=== PATIENT | female | born 1990 | race Caucasian/White ===

== ENCOUNTER → 2017-11-10 14:01 | Outpatient (CLI) | payer OTHER, MEDICAID, SELFPAY ==
--- NOTE | 2017-11-10 | DI.ECHO.S_ITS ---
[facility] +---------+ : : [address] [address] : : : : [id number] : : : : Phone: [phone]+ Echocardiogram Report + + :Name: CAROLINE ALBA Study Date: 11/10/2017 Height: 63 in : :[facility] Exam Location: [facility] Weight: 159 lb : : Gender: Female BSA: 1.8 m2 : :: 1990 Age: 27 yrs BP: 112/68 mmHg: :Reason For Study: MITRAL REGURGITATION, SYSTOLIC MURMUR : :Ordering Physician: : :Diamond Zheng Performed By: Sultana Lemus : :Referring: DIAMOND ZHENG : + + Interpretation Summary The left ventricle is normal in size, wall thickness, and systolic function without any focal wall motion abnormalities. The ejection fraction is estimated to be 55-60%. The right ventricle is normal in size and function. The right ventricular systolic pressure is estimated at 24 mmHg assuming a right atrial pressure of 8 mm Hg. The left atrial size is normal. Right atrial size is normal. There is no significant valvular heart disease. The aortic root is normal size. Procedure: A two-dimensional transthoracic echocardiogram with color flow and Doppler was performed. The study quality was technically adequate. There is no prior echocardiogram noted for this patient. The patient was in normal sinus rhythm during the exam. Left Ventricle: The left ventricle is normal in size, wall thickness, and systolic function without any focal wall motion abnormalities. The ejection fraction is estimated to be 55-60%. Assessment of diastolic parameters indicates normal left ventricular diastolic function and normal filling pressures. Right Ventricle: The right ventricle is normal in size and function. Atria: The left atrial size is normal. Right atrial size is normal. There is no Doppler evidence for an interatrial shunt. Mitral Valve: The mitral valve is normal. There is trace mitral regurgitation. Aortic Valve: The aortic valve is normal in structure and function. No aortic regurgitation is present. Tricuspid Valve: The tricuspid valve is normal. There is trace tricuspid regurgitation. The right ventricular systolic pressure is estimated at 24 mmHg assuming a right atrial pressure of 8 mm Hg. Pulmonic Valve: The pulmonic valve leaflets are thin and pliable; valve motion is normal. There is trace pulmonic regurgitation. There is no significant valvular heart disease. Great Vessels: The aortic root is normal size. The ascending aorta is normal in size. The aortic arch is normal in size. The pulmonary is not well visualized. The IVC is dilated (diameter is greater than 2.1 cm) yet it collapses greater than 50% with a sniff. This suggests a right atrial pressure of 8 mm Hg. Pericardium/ Pleura There is no pericardial effusion. There is no pleural effusion. MMode/2D Measurements & Calculations LVIDd: 4.7 cm LVOT diam: 2.0 cm LVIDs: 3.4 cm Ao root diam: 2.8 cm FS: 27.2 % asc Aorta Diam: 2.6 cm EPSS: 0.68 cm Ao Arch Diam (Prox Trans): 2.3 cm IVSd: 0.68 cm LVPWd: 0.55 cm LV haynes. diameter/BSA (cm/m^2): 2.7 LV sys. diameter/BSA (cm/m^2): 2.0 LA A2 area: 18.2 cm2 RA long axis: 5.2 cm LA A4 area: 18.1 cm2 RA area: 16.4 cm2 LA length (vol): 5.3 cm RA vol: 44.2 ml LA vol: 52.5 ml RA : 25.2 ml/m2 LA vol index: 30.0 ml/m2 IVC diam: 2.2 cm RVD1 (basal): 2.9 cm RVD2 (mid): 2.3 cm TAPSE: 3.3 cm Doppler Measurements & Calculations Ao V2 max: 142.4 cm/sec LVOT Max Kentrell: 106.5 cm/sec Ao V2 mean: 92.8 cm/sec LV V1 max P.5 mmHg Ao max P.1 mmHg LV V1 VTI: 18.6 cm Ao mean P.9 mmHg CAMRON(I,D): 2.2 cm2 Ao V2 VTI: 27.8 cm CAMRON(V,D): 2.5 cm2 sev ratio: 0.67 CAMRON indexed to BSA (cm^2/m^2): 1.2 MV E max kentrell: 87.5 cm/sec TR max kentrell: 200.3 cm/sec MV A max kentrell: 47.4 cm/sec TR max P.0 mmHg MV E/A: 1.8 PA V2 max: 82.0 cm/sec Med Peak E' Kentrell: 8.1 cm/sec PA V2 mean: 55.4 cm/sec E/E' med: 10.8 PA mean P.4 mmHg Lat Peak E' Kentrell: 17.5 cm/sec PA pr(Accel): 56.5 mmHg E/E' lat: 5.0 E/e' average: 7.9 MV dec time: 0.25 sec MV P1/2t: 74.5 msec MV P1/2t max kentrell: 87.0 cm/sec MVA(P1/2t): 3.0 cm2 Reading Physician:PM
== END ==
PROVIDERS: Family Provider Family Medicine; Visit Provider Family Medicine
DX: I34.0 Nonrheumatic mitral (valve) insufficiency (principal); R01.1 Cardiac murmur, unspecified
CPT/HCPCS: 93306

== ENCOUNTER 2022-01-28 12:52 | Emergency (ER) | payer OTHER, SELFPAY ==
[2022-01-28 13:07] VITALS: BP 137/81; PULSE 99; RESP 20; TEMP 36.8; O2SAT 98; BMI 31.4
[2022-01-28 14:13] LABS: Influenza A - CEPHEID Flu A POSITIVE (NEGATIVE); Influenza B - CEPHEID Flu B NEGATIVE (NEGATIVE); Respiratory Syncytial Virus Negative (Negative)
[2022-01-28 14:14] LABS: COVID-19 CEPHEID 4-PLEX PCR Negative (Negative)
--- NOTE | 2022-01-28 14:22 | ED_ITS ---
HPI - URI/Sore Throat <LAMONTE Thomas - Last Filed: 01/28/22 15:03> General Chief Complaint: Upper Respiratory Symptoms Stated Complaint: sore throat, hard to breathe, aches, t-4 Time Seen by Provider: 01/28/22 14:01 History of Present Illness HPI Narrative: This is a 31-year-old female who presents to the emergency depart met with her mother and complains of sore throat, congestion, body aches for the last 5 days. Patient's daughter tested positive for influenza a and they have had symptoms for similar courses. Patient denies vomiting, nausea, dysuria, urinary frequency or urgency. She denies shortness of breath, wheezing, difficulty breathing or chest pain. She denies fever and chills. She endorses having phlegm and wet secretions with rhinorrhea. Related Data Allergies Allergy/AdvReac Type Severity Reaction Status Date / Time No Known Drug Allergies Allergy Verified 01/28/22 13:13 Review of Systems <LAMONTE Thomas - Last Filed: 01/28/22 15:03> Review of Systems Narrative: Review of systems is negative for acute abnormalities unless otherwise noted in HPI Patient History <LAMONTE Thomas - Last Filed: 01/28/22 15:03> Social History Smoking Status: Never smoker Smoking Status: Never smoker alcohol intake frequency: other Substance Use Type: does not use Exam <LAMONTE Thomas - Last Filed: 01/28/22 15:03> Narrative Exam Narrative: Reviewed vitals signs and nursing notes. General: cooperative, comfortable, in no acute distress, well groomed HEENT: symmetrical facial expressions, moist mucous membranes, congestion present, face is mildly flushed, wet cough Cardiovascular: regular rate and rhythm, no peripheral edema, warm extremities Respiratory: normal effort, able to speak in complete sentences, without wheezing, stridor, or abnormal breath sounds. No retractions or tachypnea. GI: abdomen soft, nontender to palpation, nondistended, without masses, rebound tenderness or exquisite tenderness with exam. MSK: moves all extremities, neurovascularly intact, no weakness, normal tone Skin: brisk capillary refill, without pallor or erythema Neuro: normal speech and cognition, A&O x3, ambulatory, clear speech Psych: mental status is grossly normal, congruent mood, normal affect, pleasant and cooperative Initial Vital Signs Initial Vital Signs: Vital Signs Temperature 98.3 F 01/28/22 13:07 Pulse Rate 99 H 01/28/22 13:07 Respiratory Rate 20 01/28/22 13:07 Blood Pressure 137/81 01/28/22 13:07 Pulse Oximetry 98 01/28/22 13:07 Oxygen Delivery Method 01/28/22 13:07 <He Ramos DO - Last Filed: 01/28/22 15:04> Initial Vital Signs Initial Vital Signs: Vital Signs Temperature 98.3 F 01/28/22 13:07 Pulse Rate 99 H 01/28/22 13:07 Respiratory Rate 20 01/28/22 13:07 Blood Pressure 137/81 01/28/22 13:07 Pulse Oximetry 98 01/28/22 13:07 Oxygen Delivery Method 01/28/22 13:07 Course <LAMONTE Thomas - Last Filed: 01/28/22 15:03> Orders Ordered: ED Orders 01/28/22 13:14 Covid-19 + FLU A/B + RSV - PCR Stat Discontinued Medications Acetaminophen (Acetaminophen 325 Mg Tablet) 975 mg PO NOW ONE Stop: 01/28/22 14:23 Last Admin: 01/28/22 14:31 Dose: 975 mg Documented By: SEGUN Ketorolac Tromethamine (Ketorolac 10 Mg Tablet) 10 mg PO NOW ONE Stop: 01/28/22 14:23 Last Admin: 01/28/22 14:31 Dose: 10 mg Documented By: SEGUN Vital Signs Vital signs: Vital Signs - 8 hr 01/28/22 13:07 Temperature 98.3 F Pulse Rate 99 H Respiratory Rate 20 Blood Pressure 137/81 Pulse Oximetry 98 Oxygen Delivery Method Room Air <He Ramos DO - Last Filed: 01/28/22 15:04> Orders Ordered: ED Orders 01/28/22 13:14 Covid-19 + FLU A/B + RSV - PCR Stat Discontinued Medications Acetaminophen (Acetaminophen 325 Mg Tablet) 975 mg PO NOW ONE Stop: 01/28/22 14:23 Last Admin: 01/28/22 14:31 Dose: 975 mg Documented By: SEGUN Ketorolac Tromethamine (Ketorolac 10 Mg Tablet) 10 mg PO NOW ONE Stop: 01/28/22 14:23 Last Admin: 01/28/22 14:31 Dose: 10 mg Documented By: SEGUN Vital Signs Vital signs: Vital Signs - 8 hr 01/28/22 13:07 Temperature 98.3 F Pulse Rate 99 H Respiratory Rate 20 Blood Pressure 137/81 Pulse Oximetry 98 Oxygen Delivery Method Room Air MDM - URI/Sore Throat <LAMONTE Thomas - Last Filed: 01/28/22 15:03> Lab Data Labs: Lab Results 01/28/22 Range/Units 13:14 SARS-CoV-2 (PCR) Negative (Negative) Influenza A (RT-PCR) Flu a positive H (NEGATIVE) Influenza B (RT-PCR) Flu b negative (NEGATIVE) RSV (PCR) Negative (Negative) MDM Narrative Medical decision making narrative: This is a 31-year-old female who presents to the emergency department with upper respiratory symptoms including sore throat, body aches, cough and congestion for the last 5 days. Her respiratory viral PCR is positive for influenza A. Her symptoms are without hypoxia, respiratory distress, dehydration, or focal exam to suggest secondary bacterial infection. Discussed CDC guidelines for mask wearing, physical distancing, and infection prevention measures such as frequent handwashing. Discussed supportive treatments: Tylenol/Motrin as needed for pain/fever. OTC decongestant medications and/or antihistamines for symptomatic relief. She is not having vomiting, diarrhea or fever with chills. Maintain adequate fluid intake. Follow-up with PCP as directed. Return to clinic/ER instructions discussed for new, not improving, or worsening symptoms. All questions answered. <He Ramos DO - Last Filed: 01/28/22 15:04> Lab Data Labs: Lab Results 01/28/22 Range/Units 13:14 SARS-CoV-2 (PCR) Negative (Negative) Influenza A (RT-PCR) Flu a positive H (NEGATIVE) Influenza B (RT-PCR) Flu b negative (NEGATIVE) RSV (PCR) Negative (Negative) Discharge Plan Departure Patient Disposition: Home Clinical Impression: Influenza A Instructions: Influenza Activity Restrictions/Additional Instructions: *You have been diagnosed with influenza a. I am sorry for your symptoms. Hopefully you are already over the hump since her symptoms have been ongoing this long. Please use Mucinex as needed for productive cough, Zyrtec 10 mg to 20 mg at night for nasal congestion, this will be most helpful for you probably. Please stay hydrated as well, use Tylenol ibuprofen as needed for your pain. I hope you guys feel better soon. *What to do: *Please continue to take your regular medications as directed. [ ] New medication prescriptions sent to your pharmacy: [ ] [ ] New medication written as a paper prescription [ x] No new medications given *Please follow up with your primary care provider in 2-3 days, call for an appointment. Let them know you were seen in the Emergency Department and that we asked that you be seen for follow-up. We will electronically transmit a record of today's note if your PCP is in our system *If you do not have a primary care provider please contact [phone] to establish care with one of the [facility] primary care providers. *Return to Emergency Department if you should have any new, worsening, or c oncerning symptoms, such as [fever greater than 101F, chills, worsening pain, persistent vomiting or other bothersome symptoms]. Referrals: Diamond Zheng MD [Primary Care Provider] - Visit Report Forms: Patient Portal/API <He Ramos DO - Last Filed: 01/28/22 15:04> [facility]: Dr Ramos Co-Sign Statement: I was available for consultation during this patient's emergency department visit. This chart is signed by myself for administrative purposes only. I did not have direct contact with this patient during this visit. They were seen independently by the APC.
[2022-01-28] MEDS: ACETAMINOPHEN 325 MG TABLET 975 MG PO (14:31)
[2022-01-28] MEDS: KETOROLAC 10 MG TABLET PO (14:31)
== END 2022-01-28 15:03 | disposition home or self-care (01) ==
PROVIDERS: Emergency Medicine; Emergency Provider Nurse Practitioner Critical Care Medicine; Family Provider Family Medicine; PCP Family Medicine
DX: J10.1 Influenza due to other identified influenza virus with other respiratory manifestations (principal)
CPT/HCPCS: 0241U; 99283